=== PATIENT | female | born 1985 | race Caucasian/White ===

== ENCOUNTER 2017-03-30 05:42 | Inpatient (IN) | payer OTHER ==
[~2017-03-30] VITALS: Ht 162.6 cm; Wt 81.0 kg
--- OUTSIDE RECORDS SUMMARY | ~2017-03-30 | XMS ---
Demographics + + + | Address | [address] | | | [address] | | | [place] [address] | + + + | Preferred Language | Unknown | + + + | Marital Status | Unknown | + + + | Anabaptist Affiliation | Unknown | + + + | Race | Unknown | + + + | Ethnic Group | Unknown | + + + Author + + + | Author | [facility] | + + + | Organization | [facility] | + + + | Address | [address] | | | [place] [address] | + + + | Phone | | + + + Care Team Providers + + + + | Care Registered Pharmacist Name | Role | Phone | + + + + Unavailable | Unavailable | + + + + PROBLEMS +---------+ + + +--------+ + + | Type | Condition | ICD9-CM | [id number] | Onset | Condition | SNOMED | | | | Code | Code | Dates | Status | Code | +---------+ + + +--------+ + + | Problem | Encounter | Z34.90 | | | Active | [id number] | | | for | | | | | | | | supervisio | | | | | | | | n of | | | | | | | | normal | | | | | | | | | | | | | | +---------+ + + +--------+ + + ALLERGIES Unknown Allergies SOCIAL HISTORY No smoking Hx information available PLAN OF CARE VITAL SIGNS MEDICATIONS Unknown Medications RESULTS No Results PROCEDURES No Known procedures IMMUNIZATIONS No Known Immunizations"
--- OUTSIDE RECORDS SUMMARY | ~2017-03-30 | XMS ---
Demographics + + + | Address | [address] | | | [address] | | | [place] [address] | + + + | Preferred Language | Unknown | + + + | Marital Status | Unknown | + + + | Lutheran Affiliation | Unknown | + + + | Race | Unknown | + + + | Ethnic Group | Unknown | + + + Author + + + | Author | [facility] | + + + | Organization | [facility] | + + + | Address | [address] | | | [place] [address] | + + + | Phone | | + + + Care Team Providers + + + + | Care Toll Operator Name | Role | Phone | + + + + Unavailable | Unavailable | + + + + PROBLEMS +---------+ + + +--------+ + + | Type | Condition | ICD9-CM | MXF19-ZH | Onset | Condition | SNOMED | | | | Code | Code | Dates | Status | Code | +---------+ + + +--------+ + + | Problem | Encounter | Z34.90 | | | Active | [id number] | | | for | | | | | | | | supervisio | | | | | | | | n of | | | | | | | | normal | | | | | | | | | | | | | | +---------+ + + +--------+ + + ALLERGIES + + + + +---------+ | Substance | Reaction | Event Type | Date | Status | + + + + +---------+ | NDonavanKMarisol. | Unknown | Non Drug | Dec, | Unknown | | | | Allergy | | | + + + + +---------+ SOCIAL HISTORY No smoking Hx information available PLAN OF CARE + +---------+ | Activity | Details | + +---------+ +---+ | | +---+ + + + | Follow Up | prn Reason:null | + + + VITAL SIGNS + + + + | Height | 64 in | 2017-01-19 | + + + + | Weight | 165.6 lbs | 2017-01-19 | + + + + | BMI | 28.42 kg/m2 | 2017-01-19 | + + + + | Temperature | 97.9 degrees Fahrenheit | 2017-01-19 | + + + + | Heart Rate | 93 /min | 2017-01-19 | + + + + | Blood pressure systolic | 132 mm Hg | 2017-01-19 | + + + + | Blood pressure diastolic | 75 mm Hg | 2017-01-19 | + + + + MEDICATIONS + + + + +--------+ + +--------+ | Medicati | Instruct | Dosage | Frequenc | Start | End Date | Duration | Status | | on | ions | | y | Date | | | | + + + + +--------+ + +--------+ | Amoxicil | Orally | 1 tablet | 12h | | | 10 | Active | | sanket 875 | every 12 | | | | | day(s) | | | MG | hrs | | | | | | | + + + + +--------+ + +--------+ | | | | | | | | Active | | 28-0.8 | | | | | | | | | MG | | | | | | | | + + + + +--------+ + +--------+ RESULTS + +--------+------+ + | Name | Result | Date | Reference Range | + +--------+------+ + | Strep Gp A Rapid | | | | | (IH) | | | | + +--------+------+ + PROCEDURES + + + + + | Procedure | Date Ordered | Related Diagnosis | Body Site | + + + + + | STREP A ASSAY | January 19, 2017 | | | | W/OPTIC | | | | + + + + + | Est Level III | January 19, 2017 | | | | Intermediate | | | | + + + + + | DOC MEDS VERIFIED | January 19, 2017 | | | | W/PT OR RE | | | | + + + + + | DSCHRG MED/CURRENT | January 19, 2017 | | | | MED MERGE | | | | + + + + + IMMUNIZATIONS No Known Immunizations"
[~2017-03-30 05:42] MED LIST: COMPLETENATE T1 EACH MT
--- NOTE | 2017-03-30 08:33 | NUR ---
03/30/17 0832 Jojo Schmidt 0827 PATIENT ARRIVES TO [facility] ROOM 103, AWAKE, ALERT AND ORIENTED X3. RESP EVEN AND UNLABORED, ENCOURAGED TO DEEP BREATHE AND COUGH.
--- NOTE | 2017-03-31 12:13 | PR ---
[facility] [address] [facility] [place] [address] Signed PP Progress Notes Datetime Report Generated by CPN: 03/31/2017 12:13 SUBJECTIVE: [id number] Pain: Within normal limits Nausea/Vomiting: Denies Vital Signs: [id number] Vital Signs: Reviewed; Within Normal Limits Notable Details: PP Hgb/Hct = 9.2/26.3 EXAM: [id number] Abdomen/Uterus: Normal Lochia: Normal Extremities: Normal Incision: Normal IMPRESSION/PLAN/PROCEDURES: [id number] Impression: Normal progression Plan: Continue present management Procedures: None Progress Notes: Doing well, without complaint. Signing Physician: Ethel Caceres MD CC: *Electronically Signed* 03/31/17 1213 ETHEL CACERES MD PATIENT NAME: JAYRO SURESH PROGRESS NOTE DATE OF : 81 PHYSICIAN: ETHEL CACERES MD RPT #: [id number] REPORT IS CONFIDENTIAL AND NOT TO BE RELEASED WITHOUT AUTHORIZATION
--- NOTE | 2017-04-01 14:16 | OR ---
[facility] [address] [place], [place] [address] Signed DATE OF PROCEDURE: 03/30/17 PREOPERATIVE DIAGNOSIS: Term , previous section x2. POSTOPERATIVE DIAGNOSIS: Term , previous section x2. PROCEDURE Repeat low transverse segment section, delivery of live female infant. SURGEON: Eloy Hu M.D. BULB PACKER: Brian Barakat D.O. ANESTHESIA: Spinal. ESTIMATED BLOOD LOSS: 750 mL. COMPLICATIONS: None. DRAINS: Rao to bladder. FINDINGS Live female infant, 7 and 7. Normal uterus, normal tubes and ovaries bilateral. DESCRIPTION OF PROCEDURE The patient brought in the operating room, placed in supine position, and after adequate spinal anesthesia was obtained, was prepped and draped in usual sterile fashion. Rao catheter was placed in the bladder. A Pfannenstiel skin incision was made through previous surgical scar. Subcutaneous tissue was dissected with the Bovie. The fascia was nicked with scalpel and extended transverse fashion using curved scissors. The underlying abdominal musculature was bluntly sharply from the fascia above and below the incision. The abdominal musculature was bluntly sharply along the midline. The peritoneum was grasped with hemostats, elevated and nicked with Metzenbaum scissors and extended in a vertical fashion using Metzenbaum scissors. The Ar self-retaining retractor was inserted into the incision and tightened in place. The lower uterine segment was examined. The bladder noted to be below the area of dissection, so a small incision was made in the lower uterine segment using a scalpel. Bulging bag of clear fluid came from the incision. The incision was extended in a transverse fashion using finger dissection. The bag of fluid was opened with pickups with teeth. The was noted to be in a vertex ROT presentation. 's head was easily delivered from the incision. The rest of the was easily delivered from the incision. The cord was noted to be around the leg. Once this was removed and the cord Electronically Signed By: ELOY HU MD 04/01/17 1416 PATIENT NAME: JAYRO SURESH OPERATIVE REPORT DATE OF : 81 PHYSICIAN: ELOY HU MD REPORT #: [id number] REPORT IS CONFIDENTIAL AND NOT TO BE RELEASED WITHOUT AUTHORIZATION [facility] [address] [place], [place] [address] Signed doubly clamped and cut, the 's mouth and nose were suctioned bulb syringe at the same time. The then was passed off table in good condition to the awaiting nurse. The placenta was then manually removed and uterine cavity explored, a lap pad to remove any retained membranes. T clamps were placed at each angle and on the lower uterine segment. There was excess bleeding at the left angle, but this was controlled with 2 T clamps. With bleeding controlled, the uterine cavity was explored a lap pad to remove any retained membranes. An angle stitch of 0 Monocryl was placed at the right side incision and running locking stitch starting at the left side and incorporating the uterine vessel. The open uterine vessel was used to close the incision. Second running stitch of 0 Monocryl was used to imbricate the 1st layer. Good hemostasis was then noted. The entire pelvis was irrigated suctioned, examined, and noted to have good hemostasis. Any superficial bleeding spots were then cauterized with the Bovie. The Ar retractor was removed and a sheet of ACell placed over the lower uterine segment to help with healing. The anterior wall peritoneum was closed using running stitch of 2-0 Vicryl suture. The abdominal musculature was reapproximated using interrupted stitches of 0 Vicryl suture. Abdominal wall incision was irrigated, suction e d examined, any bleeding spots cauterized with the Bovie. Powdered ACell sprinkled on the abdominal musculature was helped with healing and then the fascia closed using 2 running stitch of 0 Vicryl suture meeting in the midline. Subcutaneous tissue was irrigated and suctioned examined. Any bleeding spots cauterized with the Bovie. The remaining powdered ACell sprinkled on subcutaneous tissue, which was then closed using interrupted stitches of 3-0 Vicryl suture. Skin was reapproximated using skin clips. Th e patient tolerated the procedure well went to recovery room in good condition. Sponge, needle, and instrument counts were correct at the end of the procedure. MD BIPIN Damon/Orlandol /[id number] Electronically Signed By: ELOY HU MD 04/01/17 1416 PATIENT NAME: JAYRO SURESH OPERATIVE REPORT DATE OF : 81 PHYSICIAN: ELOY HU MD REPORT #: [id number] REPORT IS CONFIDENTIAL AND NOT TO BE RELEASED WITHOUT AUTHORIZATION
--- NOTE | 2017-04-01 14:20 | PR ---
[facility] [address] [facility] [place] [address] Signed PP Progress Notes Datetime Report Generated by CPN: 04/01/2017 14:20 SUBJECTIVE: [id number] Pain: Within normal limits Nausea/Vomiting: Denies Vital Signs: [id number] Vital Signs: Reviewed; Within Normal Limits Notable Details: PP Hgb/Hct = 9.2/26.3 EXAM: [id number] Abdomen/Uterus: Normal Lochia: Normal Extremities: Normal Incision: Normal IMPRESSION/PLAN/PROCEDURES: [id number] Impression: Normal progression Plan: Discharge Procedures: None Progress Notes: Doing well, ready to go home. Signing Physician: Ethel Caceres MD CC: *Electronically Signed* 04/01/17 1420 ETHEL CACERES MD PATIENT NAME: JAYRO SURESH PROGRESS NOTE DATE OF : 81 PHYSICIAN: ETHEL CACERES MD RPT #: [id number] REPORT IS CONFIDENTIAL AND NOT TO BE RELEASED WITHOUT AUTHORIZATION
== END 2017-04-01 15:00 | disposition home or self-care (01) | DRG 766 ==
LOC: FBC 05:42
PROVIDERS: ADMIT General Practice
PROC: 10D00Z1 Extraction of Products of Conception, Low, Open Approach (ICD-10-PCS; principal; 2017-03-30 06:45)
DX: O34.211 Maternal care for low transverse scar from previous cesarean delivery (principal); O99.334 Smoking (tobacco) complicating childbirth; Z37.0 Single live birth; Z3A.39 39 weeks gestation of pregnancy
CPT/HCPCS: 01961; 36415; 85027; C1763; J0690; J2274; J2370; J2405; J2590; J3010; J7120